=== PATIENT | male | born 1950 | race Caucasian/White ===

== ENCOUNTER 2022-06-11 08:08 | Day surgery (SDC) | payer OTHER ==
[2022-06-05 10:12] LABS: BASOPHILS # (AUTO) 0.1 X10'3 (0-0.2); BASOPHILS % (AUTO) 0.8 % (0-1); EOSINOPHILS # (AUTO) 0.3 X10'3 (0-0.9); EOSINOPHILS % (AUTO) 4.5 % (0-6); LYMPHOCYTES # (AUTO) 1.1 X10'3 (1.1-4.8); LYMPHOCYTES % (AUTO) 14.5 % (21-51); MEAN CORPUSCULAR HEMOGLOBIN 28.6 PG (27.0-31.0); MEAN CORPUSCULAR HGB CONC 32.9 g/dL (33.0-36.5); MEAN CORPUSCULAR VOLUME 86.9 FL (78-98); MEAN PLATELET VOLUME 8.6 FL (7.4-10.4); MONOCYTES # (AUTO) 0.6 X10'3 (0-0.9); NEUTROPHILS # (AUTO) 5.5 X10'3 (1.8-7.7); NEUTROPHILS % (AUTO) 72.2 % (42-75); PRE OP HEMATOCRIT 44.5 % (42.0-52.0); PRE OP HEMOGLOBIN 14.7 g/dL (14.0-17.9); PRE OP PLATELET COUNT 285 X10'3 (140-440); RED BLOOD COUNT 5.12 X10'6 (4.70-6.10); RED CELL DISTRIBUTION WIDTH 15.3 % (11.5-14.5)
[2022-06-05 10:28] LABS: ALBUMIN 3.3 G/DL (3.4-5.0); ALBUMIN/GLOBULIN RATIO 0.9 (1.1-1.5); ALKALINE PHOSPHATASE 70 IU/L (46-116); BLOOD UREA NITROGEN 21 MG/DL (7-18); BUN/CREATININE RATIO 20.2 (5.4-32.0); CALCIUM 8.5 MG/DL (8.5-10.1); CHLORIDE 104 MMOL/L (99-107); CREATININE 1.04 MG/DL (0.60-1.10); PRE OP ALT 26 U/L (30-65); PRE OP ANION GAP 8 (8-16); PRE OP AST 22 U/L (10-37); PRE OP BILIRUB, TOTAL 0.8 MG/DL (0.0-1.0); PRE OP GLUCOSE 88 MG/DL (70-104); PRE OP POTASSIUM 4.6 MMOL/L (3.4-5.1); PRE OP SODIUM 140 MMOL/L (135-145); TOTAL CARBON DIOXIDE 27.6 MMOL/L (24-32); TOTAL PROTEIN 6.8 G/DL (6.4-8.2); eGFR 71 ML/MIN
[~2022-06-11] VITALS: Ht 180.3 cm; Wt 84.0 kg
[2022-06-11] VITALS (13 sets, daily range): BP systolic 113–134; BP diastolic 71–91
[~2022-06-11 08:08] MED LIST: FISH OIL; JOINT FORMULA; MULT-1085 PO; TURMERIC; VITAMIN D3; ceFAZolin inj. 2,000 MG in dextrose 5%-water 100 ML IV ONE; famotidine 20mg tablet PO ONE; ringers solution, lacted 1,000 ML IV SCH
[2022-06-11] MEDS ORDERED: LIDOcaine 1% 30ml preserv. free vial ONE (11:30)
[2022-06-11] MEDS ORDERED: BUPIVAcaine/PF 2.5 mg/ml (0.25%) 30ml vial ONE (11:30)
[2022-06-11] MEDS ORDERED: meperidine/PF 25mg/ml syringe IV PRN ×3 (11:40)
[2022-06-11] MEDS ORDERED: ringers solution, lacted 1,000 ML IV SCH (11:40)
[2022-06-11] MEDS ORDERED: acetaminophen 1,000mg/100ml IV 100 ML IV PRN (11:40)
[2022-06-11] MEDS ORDERED: morphine 4 MG/ML inj SYRINge IV PRN (11:40)
[2022-06-11] MEDS ORDERED: hydrALAZINE 20mg/ml inj. IV PRN (11:40)
[2022-06-11] MEDS ORDERED: proCHLORperazine 10 MG/2 ml inj IV PRN (11:40)
[2022-06-11] MEDS ORDERED: ondansetron/PF 4mg/2ml inj IV PRN (11:40)
[2022-06-11] MEDS ORDERED: labetalol 20mg/4ml (5mg/ml) syringe IV PRN (11:40)
[2022-06-11] MEDS ORDERED: morphine 2 MG/ML inj. syringe IV PRN (11:40)
[2022-06-11] MEDS ORDERED: midazolam 1 mg/ML 2ml injection ONE (11:42)
[2022-06-11] MEDS ORDERED: rocuronium 10mg/ml inj IV ONE (11:58)
[2022-06-11] MEDS ORDERED: propofol inj 20 ML IV ONE (11:58)
[2022-06-11] MEDS ORDERED: fentaNYL /PF 50mcg/ml 5ml ampule ONE (11:58)
[2022-06-11] MEDS ORDERED: LIDOcaine 2% (20mg/ml) 5ml vial ONE (11:58)
--- NOTE | 2022-06-11 13:03 | NUR ---
Received from OR via [facility] , accompanied by Anesthesiologist CLEMENTINE and report given by Anesthesiolgist. JPATIENT WITH 20G PIV IN RIGHT UE RUNNING LR AT 100 DENIES PAIN AT THIS TIME. PATIENT WITH 3 ABDOMINAL BANDAIDS PRESENT THAT ARE CDI. VSS. 10L MASK ON WITH 99% SATURATIONS. Addendum: 06/11/22 at 1309 by Eleazar Bruno RN, RN Amended: Links added.
[2022-06-11] MEDS ORDERED: HYDROcodone/acetaminophen 5mg/325mg tablet PO PRN (13:20)
--- NOTE | 2022-06-11 14:54 | NUR ---
ALL DISCHARGE CRITERIA HAS BEEN MET. VSS, PAIN AT A TOLERABLE LEVEL, VOIDING AND ABLE TO SAFELY AMBULATE AND TRANSFER SELF. IV TAKEN OUT WITHOUT ANY COMPLICATIONS. ALL DISCHARGE INSTRUCTIONS COVERED WITH PATIENT AND ALL QUESTIONS ANSWERED. PATIENT TAKEN OUT VIA WHEELCHAIR WITH ALL BELONGINGS TO PERSONAL VEHICLE WHERE FAMILY DROVE PATIENT HOME. Addendum: 06/11/22 at 1522 by Aramis Melissa RN Amended: Links added.
== END 2022-06-11 15:08 | disposition home or self-care (01) ==
LOC: PAS 08:08
PROVIDERS: ATTEND Surgery
DX: K40.90 Unilateral inguinal hernia, without obstruction or gangrene, not specified as recurrent (principal); K42.9 Umbilical hernia without obstruction or gangrene; Z79.899 Other long term (current) drug therapy; Z98.890 Other specified postprocedural states
CPT/HCPCS: 36415; 49585; 49650; 80053; 82948; 85025; 87811; 93005; C1781; J0690; J2250; J2704; J3010; J3490; J7030; J7060; J7120; Z7506; Z7508; Z7512; A4215; A4618